=== PATIENT | female | born 1975 | race Caucasian/White ===

== ENCOUNTER 2018-11-18 23:28 | Emergency (ER) | payer SELFPAY ==
[2018-11-18] MEDS ORDERED: Fluorescein 1 MG Ophth Strip EYERT ONE (23:50)
[2018-11-18] MEDS ORDERED: Proparacaine 0.5% Ophth Soln 15 ML Bottle EYERT STA (23:50)
[2018-11-19] MEDS ORDERED: Erythromycin Base 0.5% Ophth Oint 1 GM Tube EYERT STA (00:03)
--- NOTE | 2018-11-19 00:09 | EDM.PDOC ---
ED HPI GENERAL MEDICAL PROBLEM - General Chief Complaint: Eye Problems Stated Complaint: EYE INJURY Time Seen by Provider: 11/18/18 23:46 Source of Information: Reports: Patient, Family () History Limitations: Reports: No Limitations - History of Present Illness INITIAL COMMENTS - FREE TEXT/NARRATIVE: Mrs. 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 She states that she was striking a wall with a hammer around 18:30 this evening, when a piece of the wall struck her in the right eye. She was not wearing glasses, and she does not wear contacts. She presents with pain to the right eye, and states that it is difficult to open it. She states that she can see out of it normally , when she is able to open it, however. She has a foreign body sensation. No prior right eye injury. The patient does not have a PCP. Right Eye Pain Score (Numeric/FACES): 10 - Related Data Allergies Allergy/AdvReac Type Severity Reaction Status Date / Time No Known Allergies Allergy Verified 11/18/18 23:44 Home Meds: Home Meds . [No Known Home Meds] 11/18/18 [History] Past Medical History - Past Surgical History GI Surgical History: Reports: Cholecystectomy (2017), ERCP (with sphincterotomy and CBD stent) Female Surgical History: Reports: Tubal Ligation Social & Family History - Tobacco Use Smoking Status *Q: Current Every Day Smoker Years of Tobacco use: 28 Packs/Tins Daily: 0.5 Packs/Tins Daily Comment: Down from 2 ppd - Alcohol Use Alcohol Use History: No - Recreational Drug Use Recreational Drug Use: No - Living Situation & Occupation Living situation: Reports: , with Spouse, with Family (1 son) Occupation: Employed (Remodels homes) ED ROS GENERAL - Review of Systems Review Of Systems: ROS reveals no pertinent complaints other than HPI. ED EXAM GENERAL W FULL EYE - Physical Exam Exam: See Below Exam Limited By: No Limitations General Appearance: Alert, WD/WN, Mild Distress (appears uncomfortable) Eyelids: Right: Edema, Lid Everted for Exam, Left: Normal Appearance Conjunctiva & Sclera: Right: Injected, Left: Normal Appearance Cornea Exam: Right: Corneal Abrasion (large, upper secton), Examined with Flourescein Extraocular Movements: Bilateral: Intact Pupils: Normal Accommodation Pupillary Size: Bilateral: 5 mm Pupillary Reaction: Bilateral: Brisk Anterior Chamber: Bilateral: Normal Appearance Course - Vital Signs Last Recorded V/S: Last Vital Signs Temp 37.0 C 11/18/18 23:40 Pulse 68 11/18/18 23:40 Resp 18 11/18/18 23:40 BP 130/81 11/18/18 23:40 Pulse Ox 100 11/18/18 23:40 - Orders/Labs/Meds Meds: Medications Discontinued Medications Generic Name Dose Route Start Last Admin Trade Name [place] PRN Reason Stop Dose Admin Erythromycin 1 gm 11/19/18 00:03 11/19/18 00:14 Erythromycin 0.5% Ophth Oint EYERT 11/19/18 00:04 1 strip ONETIME STA Administration Fluorescein Sodium 1 mg 11/18/18 23:50 11/19/18 00:04 Ful-Melania EYERT 11/18/18 23:51 1 mg ONETIME ONE Administration Proparacaine HCl 1 ml 11/18/18 23:50 11/19/18 00:04 Proparacaine 0.5% Ophth Soln EYERT 11/18/18 23:51 1 dose ONETIME STA Administration - Re-Assessments/Exams Free Text/Narrative Re-Assessment/Exam: 11/19/18 00:04 On examination of the patient's right eye with fluorescein under a Wood's lamp, there is a large corneal abrasion to the superior aspect of her cornea. No foreign body was found. I will have Haylie RN instill some erythromycin ointment, show the patient how to do it, then give her the tube. I explained to the patient that she will likely still have some discomfort after 3 days, but if she has not developed significant improvement by then, I would like her to follow-up with an eye doctor for reevaluation. Departure - Departure Time of Disposition: 00:05 Disposition: Home, Self-Care 01 Condition: Good Clinical Impression: Corneal abrasion, right - Discharge Information *PRESCRIPTION DRUG MONITORING PROGRAM REVIEWED*: Not Applicable *COPY OF PRESCRIPTION DRUG MONITORING REPORT IN PATIENT MELITA: Not Applicable Instructions: Corneal Abrasion, [id number] Referrals: Adriana Barnes MD [Physician] - Forms: ED Department Discharge Additional Instructions: You were seen in the emergency room after your right eye was struck by a flying foreign body. On evaluation of your right eye with fluorescein under a Mendieta lamp, you have a large corneal abrasion to the upper part of your cornea. You have been shown how to instill erythromycin ointment in your right eye. Instill a 1 cm ribbon to the inside of your lower eyelid up to 6 times a day, as needed for discomfort. In addition to the erythromycin ointment, you may take [id number] ibuprofen, 3 tablets (600 mg) every 8 hours, with food, as needed for discomfort. While you will likely still have some discomfort after 3 days, if you have not developed significant improvement in your symptoms by then, we recommend that you follow-up with an eye doctor for reevaluation. Follow-up with Dr. Adriana Barnes as a PCP, as needed. If any other problems, please do not hesitate to return to the ER.
== END 2018-11-19 00:15 | disposition home or self-care (01) ==
LOC: JD.ED 23:28
DX: S05.01XA Injury of conjunctiva and corneal abrasion without foreign body, right eye, initial encounter (principal); F17.210 Nicotine dependence, cigarettes, uncomplicated; W20.8XXA Other cause of strike by thrown, projected or falling object, initial encounter; Y93.89 Activity, other specified; Y92.009 Unspecified place in unspecified non-institutional (private) residence as the place of occurrence of the external cause
CPT/HCPCS: 99283; A9270